=== PATIENT | female | born 1965 | race Caucasian/White ===

== ENCOUNTER 2020-04-18 12:37 | Outpatient (REF) | payer OTHER, SELFPAY ==
[2020-04-18 13:50] LABS: MANUAL DIFF FLAG NO
[2020-04-18 13:58] LABS: Basophils Absolute Auto 0.1 X10*3/uL (0.0-0.2); Eosinophils Absolute Auto 0.1 X10*3/uL (0.0-0.4); Hematocrit 44.1 % (37-47); Hemoglobin 13.9 g/dl (12.0-16.0); Imm Gran Abs Auto 0.02 X10*3/uL (0.00-0.03); Imm Gran Pct Auto 0.3 % (0.0-0.4); Lymphocytes Absolute Auto 2.5 X10*3/uL (1.2-4.9); Mean Corpuscular HGB Conc 31.5 g/dl (31.0-35.0); Mean Corpuscular Hemoglobin 27.7 pg (27.0-33.0); Mean Corpuscular Volume 87.8 fL (80-98); Mean Platelet Volume 10.8 fL (9.4-12.3); Monocytes Absolute Auto 0.5 X10*3/uL (0.1-1.2); Monocytes Percent Auto 7.7 % (2-11); Neutrophils Absolute Auto 3.6 X10*3/uL (2.0-8.3); Platelet Count 340 X10*3/uL (160-400); Red Blood Count 5.02 X10*6/uL (4.20-5.50); Red Cell Distribution Width 13.6 % (11.0-16.0); White Blood Count 6.9 X10*3/uL (4.8-10.8)
[2020-04-18 14:39] LABS: Alanine Aminotransferase 15 U/L (0-31); Albumin Level 4.4 g/dL (3.5-5.0); Alkaline Phosphatase 80 U/L (39-117); Anion Gap 14 (12-20); Aspartate Amino Transferase 16 U/L (5-31); Bilirubin Total 0.5 mg/dL (0.0-1.0); Blood Urea Nitrogen 13 mg/dL (9-16); Calcium 8.9 mg/dL (8.4-10.2); Carbon Dioxide 26 mmol/L (22-29); Chloride 104 mmol/L (96-108); Cholesterol 228 mg/dL; Estimated Glomerular Filt Rate > 60; Glucose Fasting 92 mg/dL (60-99); HDL Cholesterol 62 mg/dL; LDL Cholesterol Calculated 145 mg/dl; Potassium 4.7 mmol/l (3.3-5.1); Sodium 139 mmol/L (135-145); Total Protein 7.5 g/dL (6.5-8.0); Triglycerides 108 mg/dL
[2020-04-18 14:49] LABS: Thyroid Stimulating Hormone 1.11 mIU/mL (0.32-4.0); Vitamin D 25-OH Total 30.3 ng/mL (>30)
== END 2020-04-18 12:38 | disposition home or self-care (01) ==
LOC: HO.HMGCLDS 12:37
PROVIDERS: PCP Internal Medicine; Visit Provider Internal Medicine
DX: Z00.00 Encounter for general adult medical examination without abnormal findings (principal); F41.9 Anxiety disorder, unspecified; I10 Essential (primary) hypertension
CPT/HCPCS: 36415; 80053; 80061; 82306; 84443; 85025; 88142

== ENCOUNTER 2020-04-26 10:02 | Outpatient (REF) | payer OTHER, SELFPAY ==
--- NOTE | 2020-04-26 | US_ITS ---
EXAMINATION: ULTRASOUND PELVIS COMPLETE CLINICAL INFORMATION: Asymptomatic menopausal state. COMPARISON: None TECHNIQUE: Transabdominal and transvaginal ultrasound imaging of pelvis is performed. FINDINGS: The uterus is anteverted and anteflexed measuring 7.1 cm in length, 3.2 cm in AP and 5.0 cm in transverse dimension. There is a small myometrial cyst measuring 0.3 x 0.3 x 0.3 cm. The endometrial stripe measures 0.2 cm. The uterus is homogeneous in echotexture. Right ovary measures 1.4 x 0.8 x 1.3 cm and volume 0.71 mL. It appears unremarkable. Left ovary measures 2.8 x 1.1 x 1.4 cm and volume 2.2 mL. It appears unremarkable. There is no free fluid in the cul-de-sac. US/US transvaginal IMPRESSION: Small myometrial cyst. Otherwise anteverted uterus is unremarkable. Both ovaries are unremarkable. There is no free fluid in the cul-de-sac.
--- NOTE | 2020-04-26 10:04 | US_ITS ---
EXAMINATION: ULTRASOUND PELVIS COMPLETE CLINICAL INFORMATION: Asymptomatic menopausal state. COMPARISON: None TECHNIQUE: Transabdominal and transvaginal ultrasound imaging of pelvis is performed. FINDINGS: The uterus is anteverted and anteflexed measuring 7.1 cm in length, 3.2 cm in AP and 5.0 cm in transverse dimension. There is a small myometrial cyst measuring 0.3 x 0.3 x 0.3 cm. The endometrial stripe measures 0.2 cm. The uterus is homogeneous in echotexture. Right ovary measures 1.4 x 0.8 x 1.3 cm and volume 0.71 mL. It appears unremarkable. Left ovary measures 2.8 x 1.1 x 1.4 cm and volume 2.2 mL. It appears unremarkable. There is no free fluid in the cul-de-sac. US/US pelvic complete IMPRESSION: Small myometrial cyst. Otherwise anteverted uterus is unremarkable. Both ovaries are unremarkable. There is no free fluid in the cul-de-sac.
== END 2020-04-26 10:03 | disposition home or self-care (01) ==
LOC: HO.HMGCX 10:02
PROVIDERS: PCP Internal Medicine; Visit Provider Internal Medicine
DX: N95.0 Postmenopausal bleeding (principal); Z78.0 Asymptomatic menopausal state
CPT/HCPCS: 76830; 76856

== ENCOUNTER 2022-12-09 11:21 | Outpatient (REF) | payer OTHER, SELFPAY ==
[2022-12-12 22:10] LABS: HPV mRNA E6/E7 Not Detected (Not Detected)
== END 2022-12-09 11:22 | disposition home or self-care (01) ==
LOC: HO.LNP 11:21
PROVIDERS: Visit Provider Internal Medicine
DX: Z12.4 Encounter for screening for malignant neoplasm of cervix (principal); Z11.51 Encounter for screening for human papillomavirus (HPV)
CPT/HCPCS: 87624; 88142

== ENCOUNTER 2023-11-21 08:34 | Outpatient (AMB) | payer OTHER, SELFPAY ==
[2023-11-21 08:39] VITALS: BP 116/76; PULSE 87; O2SAT 97; BMI 36.5
--- NOTE | 2023-11-21 08:39 | MHC.PC.OV ---
Vital Signs 11/21/23 08:39 Height 5 ft 6 in Weight 226 lb BMI 36.5 BP 116/76 Blood Pressure Location Rt brachial Position Sitting Pulse 87 Pulse Source Pulse Oximeter Pulse Oximetry (%) 97 Oxygen Delivery Method Room Air Intake Visit Reasons: pe Intake Note: Pt is here today for PE. Allergies No Known Allergies Allergy (Verified 11/21/23 08:41) Medication List - Last Reconciled 11/21/23 by Lela Riley MD fluoxetine 10 mg PO DAILY lisinopril 2.5 mg PO DAILY Tobacco use date assessed: 11/21/23 Dental Screening Dental Screen Date: 11/21/23 Did you have a dental visit in the last 12 months?: Yes Did you have a dental problem in the last 6 months where you did not have access to dental care?: No Was dental information given to patient?: Patient has dentist HPI pe HPI Details Pt presents for PE. Patient complains of persistent pelvic discomfort and increase vaginal mucus but denies bleeding. She has a history of ovarian cyst, which resolved. Patient complains of unrestful sleep and feeling tired during the day. Her noticed that she had episodes of apnea. [facility] Medical History (Updated 11/21/23 @ 09:21 by Lela Riley MD) Postmenopausal Annual physical exam Anxiety History of mammogram Migraine headache HTN (hypertension) Surgical History (Updated 11/21/23 @ 09:18 by Lela Riley MD) H/O colonoscopy No pertinent past surgical history Family History Father HTN (hypertension) Mother No problems noted. Sister No problems noted. Son No problems noted. Social History Housing: House Patient Tobacco Use Status: Never used Tobacco e-Cigarette/Vaping Use: Never Used service: No Current occupational status: employed Cognitive needs: No Hearing needs: No Vision needs: Yes Questionnaire PHQ-9 Over the last 2 weeks, how often have you been bothered by any of the following problems? 1. Little interest or pleasure in doing things: not at all 2. Feeling down, depressed, or hopeless: not at all 3. Trouble falling or staying asleep, or sleeping too much: not at all 4. Feeling tired or having little energy: several days 5. Poor appetite or overeating: not at all 6. Feeling bad about yourself - or that you are a failure or have let yourself or your family down: not at all 7. Trouble concentrating on things, such as reading the newspaper or watching television: not at all 8. Moving or speaking so slowly that other people could have noticed. Or the opposite - being so fidgety or restless that you have been moving around a lot more than usual: not at all 9. Thoughts that you would be better off or of hurting yourself in some way: not at all Total score: 1 Depression Screening Interpretation: Negative Depression Screening Done: Yes Source: Developed by Drs. Terrell Morales, Jayshree Sutton, Tyler Trujillo and colleagues, with an educational brian from [employer]. Thrive Questionnaire Date Thrive assessed: 11/21/23 I am a: Patient What is your living situation today?: I have a steady place to live Within the past 12 months, did the food you bought not last and you didn't have the money to get more?: Never true Within the past 12 months, did you worry whether your food would run out before you got money to buy more?: Never true Do you have trouble paying for medicines?: No Do you have trouble getting transportation to medical appointments?: No Do you have trouble paying your heating and electricity bill?: No Do you have trouble taking care of your child, family member or friend?: No Do you have trouble with day-to-day activities such as bathing, preparing meals, shopping, managing finances, etc.?: No Are you currently unemployed and looking for a job?: No Are you interested in more education?: No Please select the resources that you would like help with: None THRIVE Score: 0 AUDIT C Alcohol Use Questionnaire (AUDIT-C) 1. How often do you have a drink containing alcohol?: Monthly or less 2. How many drinks containing alcohol do you have on a typical day when you are drinking?: 1 or 2 3. How often do you have six or more drinks on one occasion?: Never Total Score: 1 JERRY-7 AMB Questionnaire JERRY-7 Date JERRY - 7 assessed: 11/21/23 Feeling nervous, anxious, or on edge: 0 = Not at all Not being able to stop or control worryin = Not at all Worrying too much about different things: 0 = Not at all Trouble relaxin = Not at all Being so restless that it is hard to sit still: 0 = Not at all Becoming easily annoyed or irritable: 0 = Not at all Feeling afraid as if something awful might happen: 0 = Not at all Total JERRY-7 score (0-4 normal; 5-9 mild; 10-14 moderate; 15-21 severe): 0 Source: Developed by Drs. Terrell Morales, Jayshree Sutton, Tyler Trujillo and colleagues, with an educational brian from [employer]. Review of Systems Const All systems reviewed & are unremarkable except as noted in HPI and below Eyes Reports no additional complaints ENT Reports no additional complaints Card Reports no additional complaints Resp Reports no additional complaints GI Reports no additional complaints Reports no additional complaints Physical exam (Primary Care) Vital Signs: Last Vital Signs Pulse 87 11/21/23 08:39 BP 116/76 11/21/23 08:39 Pulse Ox 97 11/21/23 08:39 Oxygen Delivery Method Room Air 11/21/23 08:39 BMI result Body Mass Index 36.5 Tobacco/Smoking Status: Tobacco use Status Tobacco use date assessed 11/21/23 11/21/23 08:44 Patient Tobacco Use Status Never used Tobacco 11/21/23 08:44 e-Cigarette/Vaping Use Never Used 11/21/23 08:44 PHQ-9: PHQ-9 Score PHQ-9: Total score 1 11/21/23 08:44 Depression Screening Interpretation: Negative Thrive Assessment: Date of Thrive Assessment Date Thrive assessed 11/21/23 11/21/23 08:44 Const General: no acute distress HENMT Head: Yes normal to inspection Ears: hearing grossly normal bilaterally General nose exam: Normal external nose present Face and sinus: Yes normal facial exam Throat: Yes posterior oropharynx normal Eyes General: appearance normal, both eyes and all related structures Neck Neck: Yes supple Resp Effort & Inspection: normal respiratory effort Auscultation: clear to auscultation bilaterally Cardio Rhythm: regular rhythm Heart sounds: S1 normal heart sound present and S2 normal heart sound present GI Inspection: Yes normal to inspection Palpation (GI): Soft to palpation Percussion: Yes normal to percussion Auscultation: normal bowel sounds Speculum Exam - Vagina: normal appearance of the vagina Speculum Exam - Cervix: normal appearance of the cervix Bimanual Exam- Adnexa, other: tender on the right Assessment and Plan Assessment & Plan (1) Ovarian cyst: Code(s): N83.209 - Unspecified ovarian cyst, unspecified side Plan: Obtain pelvic ultrasound to evaluate (2) Hyperlipidemia: Code(s): E78.5 - Hyperlipidemia, unspecified Plan: Continue low-cholesterol diet check blood work today (3) HTN (hypertension): Code(s): I10 - Essential (primary) hypertension Plan: Continue Lisinopril (4) Annual physical exam: Code(s): Z00.00 - Encounter for general adult medical examination without abnormal findings Plan: Well-balanced diet regular exercise weight loss discussed with the patient. she will have a fasting blood work today. She has up-to-date with the mammogram. She will be referred to GI Dr. Lee for colonoscopy (5) Sleep apnea: Code(s): G47.30 - Sleep apnea, unspecified Plan: Obtain sleep studies to evaluate for obstructive sleep apnea Orders: Orders RT home sleep study Today Lipid Panel Today E66.3 - Overweight, E78.5 - Hyperlipidemia, unspecified, I10 - Essential (primary) hypertension, Z00.00 - Encounter for general adult medical examination without abnormal findings US pelvic and transvaginal Today N83.209 - Unspecified ovarian cyst, unspecified side Comprehensive [place]. Panel Fast Today E66.3 - Overweight, E78.5 - Hyperlipidemia, unspecified, I10 - Essential (primary) hypertension, Z00.00 - Encounter for general adult medical examination without abnormal findings Complete Blood Count Auto Diff Today E66.3 - Overweight, E78.5 - Hyperlipidemia, unspecified, I10 - Essential (primary) hypertension, Z00.00 - Encounter for general adult medical examination without abnormal findings TSH reflex Free T4 Today E66.3 - Overweight, E78.5 - Hyperlipidemia, unspecified, I10 - Essential (primary) hypertension, Z00.00 - Encounter for general adult medical examination without abnormal findings Vitamin D 25-OH Total Today E66.3 - Overweight, E78.5 - Hyperlipidemia, unspecified, I10 - Essential (primary) hypertension, Z00.00 - Encounter for general adult medical examination without abnormal findings Pap Smear Today Z00.00 - Encounter for general adult medical examination without abnormal findings Referrals Gastroenterology Referral Z00.00 - Encounter for general adult medical examination without abnormal findings Coding Level of Care Code Est Pt Prev Care 40-64y(41375) Diagnoses Ovarian cyst N83.209 Hyperlipidemia E78.5 HTN (hypertension) I10 Annual physical exam Z00.00 Sleep apnea G47.30
== END 2023-11-21 09:24 | disposition home or self-care (01) ==
PROVIDERS: PCP Internal Medicine; Visit Provider Internal Medicine
DX: N83.209 Unspecified ovarian cyst, unspecified side (principal); E78.5 Hyperlipidemia, unspecified; I10 Essential (primary) hypertension; Z00.00 Encounter for general adult medical examination without abnormal findings; G47.30 Sleep apnea, unspecified
CPT/HCPCS: 99396

== ENCOUNTER 2023-11-21 09:18 | Outpatient (REF) | payer OTHER, SELFPAY ==
[2023-11-21 10:19] LABS: MANUAL DIFF FLAG NO
[2023-11-21 10:34] LABS: Basophils Absolute Auto 0.1 X10*3/uL (0.0-0.2); Basophils Percent Auto 0.7 % (0-2); Eosinophils Absolute Auto 0.1 X10*3/uL (0.0-0.4); Eosinophils Percent Auto 1.5 % (0-4); Hematocrit 42.5 % (37.0-47.0); Hemoglobin 13.5 g/dl (12.0-16.0); Imm Gran Abs Auto 0.02 X10*3/uL (0.00-0.03); Imm Gran Pct Auto 0.2 % (0.0-0.4); Lymphocytes Absolute Auto 2.2 X10*3/uL (1.2-4.9); Lymphocytes Percent Auto 27.6 % (20-40); Mean Corpuscular HGB Conc 31.8 g/dl (31.0-35.0); Mean Corpuscular Hemoglobin 27.3 pg (27.0-33.0); Mean Platelet Volume 10.5 fL (9.4-12.3); Monocytes Absolute Auto 0.7 X10*3/uL (0.1-1.2); Monocytes Percent Auto 8.3 % (2-11); Neutrophils Absolute Auto 4.9 x10*3/uL (2.0-8.3); Neutrophils Percent Auto 61.7 % (45-73); Platelet Count 328 X10*3/uL (160-400); Red Blood Count 4.94 X10*6/uL (4.20-5.50); Red Cell Distribution Width 13.9 % (11.0-16.0)
[2023-11-21 10:47] LABS: Alanine Aminotransferase 24 U/L (0-31); Albumin Level 4.1 g/dL (3.5-5.0); Alkaline Phosphatase 73 U/L (39-117); Anion Gap 10 (12-20); Aspartate Amino Transferase 22 U/L (5-31); Bilirubin Total 0.4 mg/dL (0.0-1.0); Blood Urea Nitrogen 11 mg/dL (9-16); Calcium 9.5 mg/dL (8.4-10.2); Carbon Dioxide 27 mmol/L (22-29); Chloride 105 mmol/L (96-108); Cholesterol 219 mg/dL (<200); Estimated Glomerular Filt Rate > 60; Glucose Fasting 102 mg/dL (60-99); HDL Cholesterol 54 mg/dL (>40); LDL Cholesterol Calculated 139 mg/dL (<100); Potassium 4.4 mmol/L (3.3-5.1); Sodium 138 mmol/L (135-145); Total Protein 7.5 g/dL (6.5-8.0); Triglycerides 134 mg/dL (<150)
[2023-11-21 11:08] LABS: TSH reflex Free T4 1.26 uIU/mL (0.32-4.0); Vitamin D 25-OH Total 22.4 ng/mL (>30)
== END 2023-11-21 09:19 | disposition home or self-care (01) ==
LOC: HO.HMGCLDS 09:18
PROVIDERS: PCP Internal Medicine; Visit Provider Internal Medicine
DX: Z00.00 Encounter for general adult medical examination without abnormal findings (principal); I10 Essential (primary) hypertension; E78.5 Hyperlipidemia, unspecified; E66.3 Overweight
CPT/HCPCS: 36415; 80053; 80061; 82306; 84443; 85025

== ENCOUNTER 2023-11-21 11:32 | Outpatient (REF) | payer OTHER, SELFPAY ==
[2023-11-27 07:59] LABS: HPV mRNA E6/E7 rflx Not Detected (Not Detected)
== END 2023-11-21 11:33 | disposition home or self-care (01) ==
LOC: HO.LNP 11:32
PROVIDERS: Visit Provider Internal Medicine
DX: Z00.00 Encounter for general adult medical examination without abnormal findings (principal)
CPT/HCPCS: 87624; 88142

== ENCOUNTER 2023-12-08 13:52 | Outpatient (REF) | payer OTHER, SELFPAY ==
--- NOTE | ~2023-12-08 | US_ITS ---
EXAMINATION: US PELVIS CLINICAL INFORMATION: Ovarian cyst. COMPARISON: None available. TECHNIQUE: Ultrasound of the pelvis is performed using both transabdominal and transvaginal transducers along with color Doppler. Transvaginal imaging is performed due to inadequate visualization transabdominally. FINDINGS: Uterus: The uterus is anteverted and measures 7.5 x 3.7 x 4.2 cm. Nabothian cyst in the posterior cervix. The double wall endometrial thickness is 0.3 cm. The uterus is smooth in contour and has normal myometrial echogenicity. Adnexa: The right ovary measures 1.9 x 0.8 x 1.2 cm. The left ovary measures 2.8 x 2.7 x 2.4 cm. A 2.4 cm simple appearing avascular cyst is seen in the left ovary. No free fluid. US/US pelvic and transvaginal IMPRESSION: 2.4 cm benign simple cyst in left ovary. No follow-up imaging is recommended.
== END 2023-12-08 13:53 | disposition home or self-care (01) ==
LOC: HO.HMGCX 13:52
PROVIDERS: PCP Internal Medicine; Visit Provider Internal Medicine
DX: N83.209 Unspecified ovarian cyst, unspecified side (principal)
CPT/HCPCS: 76830; 76856

== ENCOUNTER → 2024-02-11 14:45 | Outpatient (REF) | payer OTHER, SELFPAY | LOC: HO.SL 14:45 | PROVIDERS: PCP Internal Medicine; Visit Provider Internal Medicine | DX: G47.33 Obstructive sleep apnea (adult) (pediatric) (principal) | CPT/HCPCS: 95806 ==

== ENCOUNTER → 2024-02-15 15:14 | Outpatient (BNV) | payer OTHER, SELFPAY | PROVIDERS: PCP Internal Medicine; Visit Provider Internal Medicine | DX: G47.33 Obstructive sleep apnea (adult) (pediatric) (principal) | CPT/HCPCS: 95806 ==

== ENCOUNTER 2024-04-19 10:59 | Outpatient (AMB) | payer OTHER, SELFPAY ==
[2024-04-19 11:00] VITALS: BP 112/70; PULSE 74; O2SAT 96; BMI 36.6
--- NOTE | 2024-04-19 11:00 | MHC.PC.OV ---
Vital Signs 04/19/24 11:00 Height 5 ft 6 in Weight 227 lb BMI 36.6 BP 112/70 Blood Pressure Location Lt brachial Position Sitting Pulse 74 Pulse Source Pulse Oximeter Pulse Oximetry (%) 96 Oxygen Delivery Method Room Air Intake Visit Reasons: Followup CPAP Intake Note: Pt is here today for a follow up visit. Allergies No Known Allergies Allergy (Verified 04/19/24 11:02) Medication List - Last Reconciled 04/19/24 by Lela Riley MD CPAP (CPAP Machine/Device) auto pap 6-20 cm with all needed supplies fluoxetine 10 mg PO DAILY lisinopril 2.5 mg PO DAILY Tobacco use date assessed: 04/19/24 Dental Screening Dental Screen Date: 11/21/23 HPI Followup CPAP HPI Details Patient presents for the follow-up of obstructive sleep apnea, started CPAP and has been tolerating it well, sleeping 7-10 hour per night and feeling well rested in the morning. Hypertension is controlled on lisinopril [facility] Medical History (Updated 04/19/24 @ 11:20 by Lela Riley MD) Postmenopausal Annual physical exam Anxiety History of mammogram Migraine headache HTN (hypertension) Surgical History H/O colonoscopy No pertinent past surgical history Family History Father HTN (hypertension) Mother No problems noted. Sister No problems noted. Son No problems noted. Social History Housing: House Patient Tobacco Use Status: Never used Tobacco e-Cigarette/Vaping Use: Never Used service: No Current occupational status: employed Cognitive needs: No Hearing needs: No Vision needs: Yes Questionnaire PHQ-9 Over the last 2 weeks, how often have you been bothered by any of the following problems? 1. Little interest or pleasure in doing things: not at all 2. Feeling down, depressed, or hopeless: not at all 3. Trouble falling or staying asleep, or sleeping too much: not at all 4. Feeling tired or having little energy: not at all 5. Poor appetite or overeating: not at all 6. Feeling bad about yourself - or that you are a failure or have let yourself or your family down: not at all 7. Trouble concentrating on things, such as reading the newspaper or watching television: not at all 8. Moving or speaking so slowly that other people could have noticed. Or the opposite - being so fidgety or restless that you have been moving around a lot more than usual: not at all 9. Thoughts that you would be better off or of hurting yourself in some way: not at all Total score: 0 Depression Screening Interpretation: Negative Depression Screening Done: Yes 88241 - PHQ-9 Billing: Yes Source: Developed by Drs. Terrell Morales, Jayshree Sutton, Tyler Trujillo and colleagues, with an educational brian from [employer]. Thrive Questionnaire Date Thrive assessed: 04/19/24 I am a: Patient What is your living situation today?: I have a steady place to live Within the past 12 months, did the food you bought not last and you didn't have the money to get more?: Never true Within the past 12 months, did you worry whether your food would run out before you got money to buy more?: Never true Do you have trouble paying for medicines?: No Do you have trouble getting transportation to medical appointments?: No Do you have trouble paying your heating and electricity bill?: No Do you have trouble taking care of your child, family member or friend?: No Do you have trouble with day-to-day activities such as bathing, preparing meals, shopping, managing finances, etc.?: No Are you currently unemployed and looking for a job?: No Are you interested in more education?: I choose not to answer this question Please select the resources that you would like help with: None Currently or been in a relationship where the following occur: I choose not to answer THRIVE Score: 0 AUDIT C Alcohol Use Questionnaire (AUDIT-C) 1. How often do you have a drink containing alcohol?: Monthly or less 2. How many drinks containing alcohol do you have on a typical day when you are drinking?: 1 or 2 3. How often do you have six or more drinks on one occasion?: Less than monthly Total Score: 2 JERRY-7 AMB Questionnaire JERRY-7 Date JERRY - 7 assessed: 04/19/24 Feeling nervous, anxious, or on edge: 0 = Not at all Not being able to stop or control worryin = Not at all Worrying too much about different things: 0 = Not at all Trouble relaxin = Not at all Being so restless that it is hard to sit still: 0 = Not at all Becoming easily annoyed or irritable: 0 = Not at all Feeling afraid as if something awful might happen: 0 = Not at all Total JERRY-7 score (0-4 normal; 5-9 mild; 10-14 moderate; 15-21 severe): 0 Source: Developed by Drs. Terrell Morales, Jayshree Sutton, Tyler Trujillo and colleagues, with an educational brian from [employer]. JERRY-7 Assessment Billing JERRY-7 Assessment Tool: JERRY-7 Assessment 37489 Review of Systems Const All systems reviewed & are unremarkable except as noted in HPI and below ENT Reports no additional complaints Card Reports no additional complaints Resp Reports no additional complaints GI Reports no additional complaints Reports no additional complaints Physical exam (Primary Care) Vital Signs: Last Vital Signs Pulse 74 04/19/24 11:00 BP 112/70 04/19/24 11:00 Pulse Ox 96 04/19/24 11:00 Oxygen Delivery Method Room Air 04/19/24 11:00 BMI result Body Mass Index 36.6 Tobacco/Smoking Status: Tobacco use Status Tobacco use date assessed 04/19/24 04/19/24 11:04 Patient Tobacco Use Status Never used Tobacco 04/19/24 11:04 e-Cigarette/Vaping Use Never Used 04/19/24 11:04 PHQ-9: PHQ-9 Score PHQ-9: Total score 0 04/19/24 11:04 Depression Screening Interpretation: Negative Thrive Assessment: Date of Thrive Assessment Date Thrive assessed 04/19/24 04/19/24 11:04 Currently or been in a relationship where the following occur: I choose not to answer Const General: no acute distress HENMT Mouth: Normal oral and palatal mucosa present Eyes General: appearance normal, both eyes and all related structures Neck Neck: Yes supple Resp Effort & Inspection: normal respiratory effort Auscultation: clear to auscultation bilaterally Cardio Rhythm: regular rhythm Heart sounds: S1 normal heart sound present and S2 normal heart sound present GI Inspection: Yes normal to inspection Palpation (GI): Soft to palpation Percussion: Yes normal to percussion Auscultation: normal bowel sounds Coding Level of Care Code Est Pt Level 4 (77414) Diagnoses Nocturnal hypoxemia G47.34 Hyperlipidemia E78.5 HTN (hypertension) I10 Additional Codes JERRY-7 Assessment Billing - JERRY-7 Assessment Tool: JERRY-7 Assessment [id number] ([id number]) Assessment & Plan Assessment & Plan (1) Nocturnal hypoxemia: Code(s): G47.34 - Idiopathic sleep related nonobstructive alveolar hypoventilation Category: Medical Plan: Check overnight oximetry for nocturnal hypoxemia (2) Hyperlipidemia: Code(s): E78.5 - Hyperlipidemia, unspecified Category: Medical Plan: Continue low-cholesterol diet (3) HTN (hypertension): Code(s): I10 - Essential (primary) hypertension Category: Medical Plan: Continue lisinopril, return for physical in October Orders: Orders Overnight Pulse Oximetry Today G47.34 - Idiopathic sleep related nonobstructive alveolar hypoventilation Comprehensive [place]. Panel Fast 7 Months E78.5 - Hyperlipidemia, unspecified, I10 - Essential (primary) hypertension, Z00.00 - Encounter for general adult medical examination without abnormal findings Lipid Panel 7 Months E78.5 - Hyperlipidemia, unspecified, I10 - Essential (primary) hypertension, Z00.00 - Encounter for general adult medical examination without abnormal findings TSH reflex Free T4 7 Months E78.5 - Hyperlipidemia, unspecified, I10 - Essential (primary) hypertension, Z00.00 - Encounter for general adult medical examination without abnormal findings Complete Blood Count Auto Diff 7 Months E78.5 - Hyperlipidemia, unspecified, I10 - Essential (primary) hypertension, Z00.00 - Encounter for general adult medical examination without abnormal findings Vitamin D 25-OH Total 7 Months E78.5 - Hyperlipidemia, unspecified, I10 - Essential (primary) hypertension, Z00.00 - Encounter for general adult medical examination without abnormal findings Medications: Refilled fluoxetine 10 mg PO DAILY 90 tabs 3RF lisinopril 2.5 mg PO DAILY 90 tabs 3RF
== END 2024-04-19 11:55 | disposition home or self-care (01) ==
PROVIDERS: PCP Internal Medicine; Visit Provider Internal Medicine
DX: G47.34 Idiopathic sleep related nonobstructive alveolar hypoventilation (principal); E78.5 Hyperlipidemia, unspecified; I10 Essential (primary) hypertension

== ENCOUNTER → 2024-04-19 10:59 | Outpatient (BNVA) | payer OTHER, SELFPAY | PROVIDERS: PCP Internal Medicine; Visit Provider Internal Medicine | DX: G47.34 Idiopathic sleep related nonobstructive alveolar hypoventilation (principal); E78.5 Hyperlipidemia, unspecified; I10 Essential (primary) hypertension; Z79.899 Other long term (current) drug therapy | CPT/HCPCS: 96127 ==

== ENCOUNTER 2024-12-28 08:52 | Outpatient (REF) | payer OTHER, SELFPAY ==
[2024-12-28 11:12] LABS: MANUAL DIFF FLAG NO
[2024-12-28 11:21] LABS: Hematocrit 42.8 % (37.0-47.0); Hemoglobin 13.4 g/dl (12.0-16.0); Imm Gran Abs Auto 0.03 X10*3/uL (0.00-0.03); Imm Gran Pct Auto 0.4 % (0.0-0.4); Lymphocytes Absolute Auto 2.6 X10*3/uL (1.2-4.9); Mean Corpuscular HGB Conc 31.3 g/dl (31.0-35.0); Mean Corpuscular Hemoglobin 27.1 pg (27.0-33.0); Mean Corpuscular Volume 86.5 fL (80.0-98.0); NRBC Abs Auto 0.000 X10*3/uL (0.0-0.012); NRBC Pct Auto 0.0 /100WBC (0.0-0.2); Platelet Count 314 X10*3/uL (160-400); Red Blood Count 4.95 X10*6/uL (4.20-5.50); White Blood Count 7.1 X10*3/uL (4.8-10.8)
[2024-12-28 11:50] LABS: Alanine Aminotransferase 30 U/L (0-31); Albumin Level 4.3 g/dL (3.5-5.0); Alkaline Phosphatase 82 U/L (39-117); Anion Gap 10 (12-20); Aspartate Amino Transferase 24 U/L (5-31); Blood Urea Nitrogen 15 mg/dL (9-16); Calcium 8.9 mg/dL (8.4-10.2); Carbon Dioxide 26 mmol/L (22-29); Chloride 107 mmol/L (96-108); Cholesterol 233 mg/dL (<200); Estimated Glomerular Filt Rate > 60; HDL Cholesterol 63 mg/dL (>40); Potassium 4.4 mmol/L (3.3-5.1); Sodium 139 mmol/L (135-145); Total Protein 7.5 g/dL (6.5-8.0); Triglycerides 82 mg/dL (<150)
[2024-12-28 11:53] LABS: Appearance Urine Clear; Glucose Urine UA Negative (Negative); PH 5.5 (5.0-9.0); Specific Gravity - Urine 1.025 (1.005-1.025); UMIC TRIGGER UA YES
== END 2024-12-28 08:53 | disposition home or self-care (01) ==
LOC: HO.HMGCLDS 08:52
PROVIDERS: PCP Internal Medicine; Visit Provider Internal Medicine
DX: Z00.01 Encounter for general adult medical examination with abnormal findings (principal); G47.30 Sleep apnea, unspecified; I10 Essential (primary) hypertension; E78.5 Hyperlipidemia, unspecified
CPT/HCPCS: 36415; 80053; 80061; 81001; 82306; 84443; 85025; 96127

== ENCOUNTER 2024-12-28 08:52 | Outpatient (AMB) | payer OTHER, SELFPAY ==
--- NOTE | 2024-12-28 08:58 | MHC.PC.OV ---
Vital Signs 12/28/24 08:59 Height 5 ft 6 in Weight 248 lb BMI 40.0 BP 110/80 Blood Pressure Location Lt brachial Position Sitting Respiration 18 Pulse 85 Pulse Source Pulse Oximeter Temp 98.2 F Temp Source Oral Pulse Oximetry (%) 97 Oxygen Delivery Method Room Air Intake Visit Reasons: PE Intake Note: Pt is here today for PE. Allergies No Known Allergies Allergy (Verified 12/28/24 09:02) Medication List - Last Reconciled 12/28/24 by Lela Riley MD CPAP (CPAP Machine/Device) auto pap 6-20 cm with all needed supplies fluoxetine 10 mg PO DAILY lisinopril 2.5 mg PO DAILY Tobacco use date assessed: 12/28/24 Dental Screening Dental Screen Date: 12/28/24 Did you have a dental visit in the last 12 months?: Yes Did you have a dental problem in the last 6 months where you did not have access to dental care?: No Was dental information given to patient?: Patient has dentist HPI PE HPI Details Pt presents for PE. Patient reports gaining weight eating unhealthy diet and not exercising. Patient has not been feeling motivated. She denies depression PFSH Medical History (Updated 12/28/24 @ 12:36 by Lela Riley MD) Postmenopausal Annual physical exam Anxiety History of mammogram Migraine headache HTN (hypertension) Surgical History (Updated 12/28/24 @ 09:32 by Lela Riley MD) H/O colonoscopy No pertinent past surgical history Family History Father HTN (hypertension) Mother No problems noted. Sister No problems noted. Son No problems noted. Social History Housing: House Patient Tobacco Use Status: Never used Tobacco e-Cigarette/Vaping Use: Never Used Second Hand Smoke Exposure: No service: No Current occupational status: employed Current occupational exposures/hazards: No Cognitive needs: No Hearing needs: No Vision needs: Yes Questionnaire PHQ-9 Over the last 2 weeks, how often have you been bothered by any of the following problems? 1. Little interest or pleasure in doing things: not at all 2. Feeling down, depressed, or hopeless: not at all 3. Trouble falling or staying asleep, or sleeping too much: not at all 4. Feeling tired or having little energy: not at all 5. Poor appetite or overeating: not at all 6. Feeling bad about yourself - or that you are a failure or have let yourself or your family down: not at all 7. Trouble concentrating on things, such as reading the newspaper or watching television: not at all 8. Moving or speaking so slowly that other people could have noticed. Or the opposite - being so fidgety or restless that you have been moving around a lot more than usual: not at all 9. Thoughts that you would be better off or of hurting yourself in some way: not at all Total score: 0 Depression Screening Interpretation: Negative Depression Screening Done: Yes 35435 - PHQ-9 Billing: Yes Source: Developed by Drs. Terrell Morales, Jayshree Sutton, Tyler Trujillo and colleagues, with an educational brian from [employer]. Thrive Questionnaire Date Thrive assessed: 12/28/24 I am a: Patient What is your living situation today?: I have a steady place to live Within the past 12 months, did the food you bought not last and you didn't have the money to get more?: Never true Within the past 12 months, did you worry whether your food would run out before you got money to buy more?: Never true Do you have trouble paying for medicines?: No Do you have trouble getting transportation to medical appointments?: No Do you have trouble paying your heating and electricity bill?: No Do you have trouble taking care of your child, family member or friend?: No Do you have trouble with day-to-day activities such as bathing, preparing meals, shopping, managing finances, etc.?: No Are you currently unemployed and looking for a job?: No Are you interested in more education?: No Please select the resources that you would like help with: None Currently or been in a relationship where the following occur: No concerns reported THRIVE Score: 0 AUDIT C Alcohol Use Questionnaire (AUDIT-C) 1. How often do you have a drink containing alcohol?: Monthly or less 2. How many drinks containing alcohol do you have on a typical day when you are drinking?: 1 or 2 3. How often do you have six or more drinks on one occasion?: Never Total Score: 1 JERRY-7 AMB Questionnaire JERRY-7 Date JERRY - 7 assessed: 12/28/24 Feeling nervous, anxious, or on edge: 0 = Not at all Not being able to stop or control worryin = Not at all Worrying too much about different things: 0 = Not at all Trouble relaxin = Not at all Being so restless that it is hard to sit still: 0 = Not at all Becoming easily annoyed or irritable: 0 = Not at all Feeling afraid as if something awful might happen: 0 = Not at all Total JERRY-7 score (0-4 normal; 5-9 mild; 10-14 moderate; 15-21 severe): 0 Source: Developed by Drs. Terrell Morales, Jayshree Sutton, Tyler Trujillo and colleagues, with an educational brian from [employer]. JERRY-7 Assessment Billing JERRY-7 Assessment Tool: JERRY-7 Assessment 48680 Review of Systems Const All systems reviewed & are unremarkable except as noted in HPI and below Eyes Reports no additional complaints ENT Reports no additional complaints Card Reports no additional complaints Resp Reports no additional complaints GI Reports no additional complaints Reports no additional complaints Physical exam (Primary Care) Vital Signs: Last Vital Signs Temp 98.2 F 12/28/24 08:59 Pulse 85 12/28/24 08:59 Resp 18 12/28/24 08:59 BP 110/80 12/28/24 08:59 Pulse Ox 97 12/28/24 08:59 Oxygen Delivery Method Room Air 12/28/24 08:59 BMI result Body Mass Index 40.0 Tobacco/Smoking Status: Tobacco use Status Tobacco use date assessed 12/28/24 12/28/24 09:06 Patient Tobacco Use Status Never used Tobacco 12/28/24 09:06 e-Cigarette/Vaping Use Never Used 12/28/24 08:59 PHQ-9: PHQ-9 Score PHQ-9: Total score 0 12/28/24 09:26 Depression Screening Interpretation: Negative Thrive Assessment: Date of Thrive Assessment Date Thrive assessed 12/28/24 12/28/24 09:07 Currently or been in a relationship where the following occur: No concerns reported Const General: no acute distress HENMT Head: Yes normal to inspection Ears: TM's normal bilaterally General nose exam: Normal external nose present Face and sinus: Yes normal facial exam Throat: Yes posterior oropharynx normal Eyes General: appearance normal, both eyes and all related structures Neck Neck: Yes no lymphadenopathy and Yes supple Resp Effort & Inspection: normal respiratory effort Auscultation: clear to auscultation bilaterally Cardio Rhythm: regular rhythm Heart sounds: S1 normal heart sound present and S2 normal heart sound present GI Inspection: Yes normal to inspection Palpation (GI): Soft to palpation Percussion: Yes normal to percussion Auscultation: normal bowel sounds Coding Level of Care Code Est Pt Prev Care 40-64y(80415) Diagnoses HTN (hypertension) I10 Annual physical exam Z00.00 Hyperlipidemia E78.5 Sleep apnea G47.30 Additional Codes JERRY-7 Assessment Billing - JERRY-7 Assessment Tool: JERRY-7 Assessment 11576 ([id number]) PHQ-9 - 70782 - PHQ-9 Billing: Yes ([id number]) Assessment & Plan Assessment & Plan (1) HTN (hypertension): Code(s): I10 - Essential (primary) hypertension Category: Medical Plan: Continue Lisinopril (2) Annual physical exam: Code(s): Z00.00 - Encounter for general adult medical examination without abnormal findings Category: Medical Plan: Well-balanced diet regular exercise weight loss discussed with the patient. She is up-to-date with the mammogram pelvic exam and colonoscopy. (3) Hyperlipidemia: Code(s): E78.5 - Hyperlipidemia, unspecified Category: Medical Plan: Low-cholesterol diet increase exercise weight loss discussed with the patient (4) Sleep apnea: Comment: Controlled on CPAP Code(s): G47.30 - Sleep apnea, unspecified Category: Medical Plan: Continue Cpap Orders: Orders Lipid Panel Today E78.5 - Hyperlipidemia, unspecified, I10 - Essential (primary) hypertension, Z00.00 - Encounter for general adult medical examination without abnormal findings TSH reflex Free T4 Today E78.5 - Hyperlipidemia, unspecified, I10 - Essential (primary) hypertension, Z00.00 - Encounter for general adult medical examination without abnormal findings UA w Microscopic Today I10 - Essential (primary) hypertension Comprehensive [place]. Panel Fast Today E78.5 - Hyperlipidemia, unspecified, I10 - Essential (primary) hypertension, Z00.00 - Encounter for general adult medical examination without abnormal findings Complete Blood Count Auto Diff Today E78.5 - Hyperlipidemia, unspecified, I10 - Essential (primary) hypertension, Z00.00 - Encounter for general adult medical examination without abnormal findings Vitamin D 25-OH Total Today E78.5 - Hyperlipidemia, unspecified, I10 - Essential (primary) hypertension, Z00.00 - Encounter for general adult medical examination without abnormal findings Medications: New omeprazole 20 mg PO DAILY 90 caps 0RF CPAP (CPAP Machine/Device) travel, portable, with nasal pillows and tubing 1 ea 0RF G47.30 - Sleep apnea, unspecified Refilled fluoxetine 10 mg PO DAILY 90 tabs 3RF
[2024-12-28 08:59] VITALS: BP 110/80; PULSE 85; RESP 18; TEMP 36.8; O2SAT 97; BMI 40.0
--- OUTSIDE RECORDS SUMMARY | 2024-12-28 09:10 | XMS_ITS | Clinical Summary ---
Author Organization [facility] Address [address] [place] [address] Care Team Providers Care Rehab Director Name Role Phone Lela Riley MD Primary Care Provider [phone] Encounters Date Type Department Care Team Description 10/21/2024 9:00 AM EDT - 10/21/2024 11:59 PM EDT [facility] [address] [id number] Encounter for screening mammogram for breast cancer Discharge Disposition: Home or Self Care from Last 3 Months Surgical History Surgery Date Site/Laterality Comments STEREOTACTIC CORE BIOPSY Bilateral Medical History Medical History Date Comments BRCA1 gene mutation negative BRCA2 gene mutation negative Family History Medical History Relation Name Comments Breast cancer Maternal Grandmother Breast cancer Mother Relation Name Status Comments Maternal Grandmother Mother Social History Tobacco Use Types Packs/Day Years Used Date Smoking Tobacco: Never Assessed Comments No Sex and Gender Information Value Date Recorded Sex Assigned at Female 09/07/2024 10:52 AM EDT Legal Sex Female 3:27 PM EDT Gender Identity Female 09/07/2024 10:52 AM EDT Sexual Orientation Choose not to disclose 2024 10:52 AM EDT Obstetrics History Para Term AB IAB SAB Ectopic Multiple Livin g Live Births 1 Last Filed Vital Signs Vital Sign Reading Time Taken Comments Blood Pressure - - Pulse - - Temperature - - Respiratory Rate - - Oxygen Saturation - - Inhaled Oxygen Concentration - - Weight 107 kg (235 lb) 10/21/2024 9:13 AM EDT Height 167.6 cm (5' 6 ) 10/21/2024 9:13 AM EDT Body Mass Index 37.93 10/21/2024 9:13 AM EDT Plan of Treatment Health Maintenance Due Date Last Done Comments Hepatitis B Vaccines (1 of 3 - 19+ 3-dose series) 1986 Cervical Cancer Screening: Pap Smear 01/03/1988 Pneumococcal Vaccine: 50+ Years (1 of 1 - PCV) 2017 Zoster Vaccines (1 of 2) 2017 Depression Screening 10/02/2020 HIV Screening 10/02/2020 Hepatitis C Screening 10/02/2020 Social Influencers of Health Screening 10/02/2020 COVID-19 Vaccine ( season) 2024 05/21/2021, 10/31/2020, 10/10/2020 Influenza Vaccine (#1) 2025 , 04/30/2022, 04/10/2021, Additional history exists DTaP,Tdap,and Td Vaccines (2 - Td or Tdap) 02/23/2026 02/24/2016 Breast Cancer Screening 10/21/2026 10/22/19, 10/21/2023, 10/18/2022, Additional history exists Colorectal Cancer Screening: Colonoscopy 04/22/2034 04/28/2024, 04/22/2024 HIB Vaccines Aged Out No longer eligi ble based on patient's age to complete this topic HPV Vaccines Aged Out No longer eligi ble based on patient's age to complete this topic Hepatitis A Vaccines Aged Out No long er eligible based on patient's age to complete this topic IPV Vaccines Aged Out No longer eligi ble based on patient's age to complete this topic MMR Vaccines Aged Out No longer eligi ble based on patient's age to complete this topic Meningococcal ACWY Vaccine Aged Out N o longer eligible based on patient's age to complete this topic Meningococcal B Vaccine Aged Out No l onger eligible based on patient's age to complete this topic RSV Immunization Patients Under 20 months Aged Out No longer eligible based on patient's age to complete this topic Varicella Vaccines Aged Out No longer eligible based on patient's age to complete this topic Procedures Procedure Name Priority Date/Time Associated Diagnosis Comments MG MAMMO DIGITAL SCREENING W ARNAV BILAT Routine 10/21/2024 9:18 AM EDT Encounter for screening mammogram for breast cancer COLONOSCOPY Routine 04/28/2024 9:48 AM EST from Last 3 Months or Most Recently Relevant to Health Maintenance Results * MG Mammo Digital Screening w Arnav bilat (10/21/2024 9:18 AM EDT) Anatomical Region Laterality Modality Breast Bilateral Mammography 10/21/2024 1:4 2 PM EDT Impressions 10/21/2024 1:44 PM EDT No evidence of breast malignancy. BI-RADS CATEGORY: 1 - NEGATIVE RECOMMENDATION: Screening bilateral mammogram is recommended in 1 year. Mammo Location: [facility], [address] [place] [address], [id number], . -------- FINAL REPORT -------- Dictated By: Corazon Calderon Dictated Date: 10/21/2024 13:42 ET Assigned Physician: Corazon Calderon Reviewed and Electronically Signed By: Corazon Calderon Signed Date: 10/21/2024 13:44 ET Workstation ID: [id number] Transcribed By: Self Edit Transcribed Date: 10/21/2024 13:42 ET Narrative 10/21/2024 1:44 PM EDT CLINICAL: 59 years old, Female, routine annual exam. COMPARISON: 10/21/2023, 10/18/2022, 10/19/2021, 10/15/2021, 10/12/2020 and 09/03/2019 TECHNIQUE: Bilateral MLO and CC views were obtained digitally with 3-D mammogram (digital breast tomosynthesis). Computer-aided detection was utilized in evaluation of this exam (CAD). FINDINGS: There is no evidence of suspicious mass or architectural distortion. No worrisome calcifications are evident. There has been no significant change from prior exam(s). BREAST DENSITY: B - There are scattered areas of fibroglandular density. Procedure Note Corazon Calderon MD - 10/21/2024 CLINICAL: 59 years old, Female, routine annual exam. COMPARISON: 10/21/2023, 10/18/2022, 10/19/2021, 10/15/2021, 10/12/2020 and09/03/2019 TECHNIQUE: Bilateral MLO and CC views were obtained digitally with 3-Dmammogram (digital breast tomosynthesis). Computer-aided detection wasutilized in evaluation of this exam (CAD). FINDINGS: There is no evidence of suspicious mass or architectural distortion. Noworrisome calcifications are evident. There has been no significantchange from prior exam(s). BREAST DENSITY: B - There are scattered areas of fibroglandular density. IMPRESSION: No evidence of breast malignancy. BI-RADS CATEGORY: 1 - NEGATIVE RECOMMENDATION: Screening bilateral mammogram is recommended in 1 year. Mammo Location: [facility], [address] [place] [address], [id number], . -------- FINAL REPORT -------- Dictated By: Corazon Calderon Dictated Date: 10/21/2024 13:42 ET Assigned Physician: Corazon Calderon Reviewed and Electronically Signed By: Corazon Calderon Signed Date: 10/21/2024 13:44 ET Workstation ID: [id number] Transcribed By: Self Edit Transcribed Date: 10/21/2024 13:42 ET us Self Referral Sppl IMG BI PROCEDURES Final Resul t * COLONOSCOPY (04/28/2024 9:48 AM EST) Anatomical Region Laterality Modality Endoscopy us Souleymane Lee MD GI~PROCEDURE ORDERABLES Final Re sult from Last 3 Months or Most Recently Relevant to Health Maintenance Insurance [employer] Care Teams Rehab Director Relationship Specialty Start Date End Date Lela Riley MD [address] [place] [phone] PCP - General 06/04/11
--- OUTSIDE RECORDS SUMMARY | 2024-12-28 09:10 | XMS_ITS | Clinical Summary ---
Author Organization [facility] Facility Address [address] [place] [address] Care Team Providers Care Perinatal Instructor Name Role Phone Lela Riley MD Primary Care Provider [phone] Family History Medical History Relation Comments Hypertension Father Kidney disease Father grandmother Cancer Mother breast Relation Status Comments Father Mother Social History Tobacco Use Types Packs/Day Years Used Date Smoking Tobacco: Former Alcohol Use Standard Drinks/Week Comments Yes 0 (1 standard drink = 0.6 oz pure alcohol) Alcoholic Drinks/day: Occasional social drink Comments Unknown Sex and Gender Information Value Date Recorded Sex Assigned at Not on file Legal Sex Female 4:49 PM EST Gender Identity Not on file Sexual Orientation Not on file Plan of Treatment Health Maintenance Due Date Last Done Comments Breast Cancer Screening 1967 Hepatitis B Vaccine (1 of 3 - 19+ 3-dose series) 01/02 Colorectal Cancer Screening: Annual FOBT 01/03/2016 Colorectal Cancer Screening: Colonoscopy 01/03/2016 Colorectal Cancer Screening: Sigmoidoscopy 01/03/2016 Pneumococcal Vaccine: 50+ Years (1 of 1 - PCV) 017 Influenza Vaccine (#1) 2025 Care Teams Perinatal Instructor Relationship Specialty Start Date End Date Lela Riley MD [address] [place] [address] PCP - General 07/03/20
== END 2024-12-28 10:06 | disposition home or self-care (01) ==
LOC: HO.HMCC 08:53
PROVIDERS: PCP Internal Medicine; Visit Provider Internal Medicine
DX: I10 Essential (primary) hypertension (principal); Z00.00 Encounter for general adult medical examination without abnormal findings; E78.5 Hyperlipidemia, unspecified; G47.30 Sleep apnea, unspecified

== ENCOUNTER 2025-03-14 09:45 | Outpatient (AMB) | payer OTHER, SELFPAY ==
[2025-03-14 09:47] VITALS: BP 138/80; PULSE 110; RESP 20; TEMP 37.5; O2SAT 95; BMI 39.2
--- NOTE | 2025-03-14 09:47 | A.OFFPC_ITS ---
Vital Signs 03/14/25 09:47 Height 5 ft 6 in Weight 243 lb BMI 39.2 BP 138/80 Blood Pressure Location Rt brachial Position Sitting Respiration 20 Pulse 110 H Pulse Source Pulse Oximeter Temp 99.5 F Temp Source Oral Pulse Oximetry (%) 95 Oxygen Delivery Method Room Air Intake Visit Reasons: cold symptoms Intake Note: Pt is here today for a sick visit. Pt c/o cough, chest congestion and nasal congestion. Allergies No Known Allergies Allergy (Verified 03/14/25 09:52) Medication List - Last Reconciled 03/14/25 by Lela Riley MD CPAP (CPAP Machine/Device) auto pap 6-20 cm with all needed supplies CPAP (CPAP Machine/Device) travel, portable, with nasal pillows and tubing fluoxetine 10 mg PO DAILY lisinopril 2.5 mg PO DAILY omeprazole 20 mg PO DAILY Tobacco use date assessed: 03/14/25 Dental Screening Dental Screen Date: 03/14/25 Did you have a dental visit in the last 12 months?: Yes Did you have a dental problem in the last 6 months where you did not have access to dental care?: No Was dental information given to patient?: Patient has dentist HPI cold symptoms HPI Details Patient complains of 2 days of nasal congestion, watery discharge postnasal drip, dry cough body aches. She fell down in bathtub and sustained on nasal fracture 2 weeks ago and was to have a surgery this week. Patient has been taking [id number] cold medications with some relief PFSH Medical History Postmenopausal Annual physical exam Anxiety History of mammogram Migraine headache HTN (hypertension) Surgical History H/O colonoscopy No pertinent past surgical history Family History Father HTN (hypertension) Mother No problems noted. Sister No problems noted. Son No problems noted. Social History Housing: House Patient Tobacco Use Status: Never used Tobacco e-Cigarette/Vaping Use: Never Used Second Hand Smoke Exposure: No service: No Current occupational status: employed Current occupational exposures/hazards: No Cognitive needs: No Hearing needs: No Vision needs: Yes Questionnaire Thrive Questionnaire Date Thrive assessed: 11/24/24 I am a: Patient What is your living situation today?: I have a steady place to live Within the past 12 months, did the food you bought not last and you didn't have the money to get more?: Never true Within the past 12 months, did you worry whether your food would run out before you got money to buy more?: Never true Do you have trouble paying for medicines?: No Do you have trouble getting transportation to medical appointments?: No Do you have trouble paying your heating and electricity bill?: No Do you have trouble taking care of your child, family member or friend?: No Do you have trouble with day-to-day activities such as bathing, preparing meals, shopping, managing finances, etc.?: No Are you currently unemployed and looking for a job?: No Are you interested in more education?: No Please select the resources that you would like help with: None Currently or been in a relationship where the following occur: No concerns reported THRIVE Score: 0 JERRY-7 AMB Questionnaire JERRY-7 Date JERRY - 7 assessed: 12/28/24 Source: Developed by Drs. Terrell Morales, Jayshree Sutton, Tyler Trujillo and colleagues, with an educational brian from [employer]. Review of Systems Const All systems reviewed & are unremarkable except as noted in HPI and below Eyes Reports no additional complaints ENT Reports no additional complaints Card Reports no additional complaints Resp Reports no additional complaints GI Reports no additional complaints Reports no additional complaints Physical exam (Primary Care) Vital Signs: Last Vital Signs Temp 99.5 F 03/14/25 09:47 Pulse 110 H 03/14/25 09:47 Resp 20 03/14/25 09:47 BP 138/80 03/14/25 09:47 Pulse Ox 95 03/14/25 09:47 Oxygen Delivery Method Room Air 03/14/25 09:47 BMI result Body Mass Index 39.2 Tobacco/Smoking Status: Tobacco use Status Tobacco use date assessed 03/14/25 03/14/25 09:57 Patient Tobacco Use Status Never used Tobacco 03/14/25 09:57 e-Cigarette/Vaping Use Never Used 03/14/25 09:57 Thrive Assessment: Date of Thrive Assessment Date Thrive assessed 11/24/24 03/14/25 09:57 Currently or been in a relationship where the following occur: No concerns reported Const General: no acute distress HENMT Ears: TM's normal bilaterally General nose exam: Abnormal mucous membranes and turbinates present erythematous and no epistaxis Throat: Yes postnasal drainage Neck Neck: Yes supple Resp Effort & Inspection: normal respiratory effort Auscultation: clear to auscultation bilaterally Cardio Rhythm: regular rhythm Heart sounds: S1 normal heart sound present and S2 normal heart sound present Coding Level of Care Code Est Pt Level 3 (54556) Diagnoses URI (upper respiratory infection) J06.9 HTN (hypertension) I10 Assessment & Plan Assessment & Plan (1) URI (upper respiratory infection): Code(s): J06.9 - Acute upper respiratory infection, unspecified Category: Medical Plan: Supportive care discussed with the patient check URI swab (2) HTN (hypertension): Code(s): I10 - Essential (primary) hypertension Category: Medical Plan: cont med Orders: Orders SARS-CoV2/FLU/RSV Today J06.9 - Acute upper respiratory infection, unspecified Medications: New 2 benzonatate 100 mg PO TID 30 caps 0RF
--- OUTSIDE RECORDS SUMMARY | 2025-03-14 11:54 | XMS_ITS | Clinical Summary ---
Author Organization [facility] Facility Address [address] [place] [id number] Care Team Providers Care Rhic Systems Safety Engineer Name Role Phone Lela Riley MD Primary Care Provider [phone] Family History Medical History Relation Comments Hypertension [...] 017 Influenza Vaccine (#1) 2025 Care Teams [employer]ic Systems Safety Engineer Relationship Specialty Start Date End Date Lela Riley MD [address] [place] [address] PCP - General 07/03/20
--- OUTSIDE RECORDS SUMMARY | 2025-03-14 11:54 | XMS_ITS | Clinical Summary ---
Author Organization [facility] Address [address] [place] [address] Care Team Providers Care English Composition Teacher Name Role Phone Lela Riley MD Primary Care Provider [phone] Allergies No known active allergies Encounters Date Type Department Care Team Description 03/04/2025 11:51 AM EDT - 03/04/2025 12:48 PM EDT Emergency [facility] Emergency [address] [place] [address] Flory Khan MD Closed fracture of nasal bone, initial encounter (Primary Dx); Contusion of face, initial encounter Discharge Disposition: Home or Self Care from [...] Sign Reading Time Taken Comments Blood Pressure 150/81 03/04/2025 11:46 AM EDT Pulse 94 03/04/2025 11:46 AM EDT Temperature 36.3 C (97.3 F) 03/04/2025 11:46 AM EDT Respiratory Rate 14 03/04/2025 11:46 AM EDT Oxygen Saturation 97% 03/04/2025 11:46 AM EDT Inhaled Oxygen Concentration - - Weight 104 kg (230 lb) 03/04/2025 11:46 AM EDT Height 170.7 cm (5' 7.2 ) 03/04/2025 11:46 AM ED T Body Mass Index 35.81 03/04/2025 11:46 AM EDT Plan of Treatment Health Maintenance Due Date Last Done Comments Hepatitis B Vaccines (1 of 3 - 19+ 3-dose series) 1986 Cervical Cancer Screening: Pap Smear 01/03/1988 Pneumococcal Vaccine: 50+ Years (1 of 1 - PCV) 2017 Zoster Vaccines (1 of 2) 2017 HIV Screening 10/02/2020 Hepatitis C Screening 10/02/2020 Social Influencers of Health Screening 10/02/2020 Depression Screening 06/23/2024 COVID-19 Vaccine ( season) 2025 05/21/2021, 10/31/2020, 10/10/2020 Influenza Vaccine (#1) 2025 , 04/30/2022, 04/10/2021, Additional history exists DTaP,Tdap,and Td Vaccines (2 - Td or Tdap) 02/23/2026 02/24/2016 Breast Cancer Screening 10/21/2026 10/22/19 25, 10/21/2023, 10/18/2022, Additional history exists Colorectal Cancer [...] Procedure Name Priority Date/Time Associated Diagnosis Comments CT MAXILLOFACIAL WO CONTRAST STAT 03/04/2025 12:[address] CERVICAL SPINE WO CONTRAST STAT 03/04/2025 12:[address] HEAD WO CONTRAST STAT 03/04/2025 1 2:17 PM EDT MG MAMMO DIGITAL SCREENING W ARNAV BILAT Routine 10/21/2024 9:18 AM EDT Encounter for screening mammogram for breast cancer COLONOSCOPY Routine 04/28/2024 9:48 AM EST from Last 3 Months or Most Recently Relevant to Health Maintenance Results * CT Cervical Spine wo Contrast (03/04/2025 12:17 PM EDT) Anatomical Region Laterality Modality Spine, C-spine Computed Tomogra phy 03/04/2025 12:3 1 PM EDT Impressions 03/04/2025 12:32 PM EDT No acute cervical spine fracture. -------- FINAL REPORT -------- Dictated By: Selam Boswell Dictated Date: 03/04/2025 12:31 ET Assigned Physician: Selam Boswell Reviewed and Electronically Signed By: Selam Boswell Signed Date: 03/04/2025 12:32 ET Workstation ID: [id number] Transcribed By: Self Edit Transcribed Date: 03/04/2025 12:31 ET Narrative 03/04/2025 12:32 PM EDT PROCEDURE: CT Cervical Spine INDICATION: Neck trauma, dangerous injury mechanism (Age 16-64y) TECHNIQUE: Noncontrast CT of the cervical spine with multiplanar reformats. The examination was performed utilizing dose reduction techniques. DLP: 2398mGy/cm COMPARISON: No priors available. FINDINGS: No fracture. Multilevel degenerative changes are seen throughout the cervical spine with endplate irregularities, disc height loss, uncovertebral spurring and facet arthropathy present. Lung apices are clear. Thyroid nodules. Procedure Note Selam Boswell MD - 03/04/2025 PROCEDURE: CT Cervical Spine INDICATION: Neck trauma, dangerous injury mechanism (Age 16-64y) TECHNIQUE: Noncontrast CT of the cervical spine with multiplanarreformats. The examination was performed utilizing dose reduction techniques. DLP:2398mGy/cm COMPARISON: No priors available. FINDINGS: No fracture. Multilevel degenerative changes are seen throughout the cervical spinewith endplate irregularities, disc height loss, uncovertebral spurring andfacet arthropathy present. Lung apices are clear. Thyroid nodules. IMPRESSION: No acute cervical spine fracture. -------- FINAL REPORT -------- Dictated By: Selam Boswell Dictated Date: 03/04/2025 12:31 ET Assigned Physician: Selam Boswell Reviewed and Electronically Signed By: Selam Boswell Signed Date: 03/04/2025 12:32 ET Workstation ID: [id number] Transcribed By: Self Edit Transcribed Date: 03/04/2025 12:31 ET Flory Khan MD IMG CT PROCEDURES Final Result * CT Maxillofacial wo Contrast (03/04/2025 12:17 PM EDT) Anatomical Region Laterality Modality Head and Neck Computed Tomogra phy 03/04/2025 12:2 9 PM EDT Impressions 03/04/2025 12:31 PM EDT Mildly displaced nasal bone fractures. -------- FINAL REPORT -------- Dictated By: Selam Boswell Dictated Date: 03/04/2025 12:29 ET Assigned Physician: Selam Boswell Reviewed and Electronically Signed By: Selam Boswell Signed Date: 03/04/2025 12:31 ET Workstation ID: [id number] Transcribed By: Self Edit Transcribed Date: 03/04/2025 12:29 ET Narrative 03/04/2025 12:[address] MAXILLOFACIAL WO CONTRAST INDICATION: Facial trauma facial/nasal rtauma this am COMPARISON: None. TECHNIQUE: Axial Computed Tomographic imaging from the face without administration of intravenous contrast. Additional coronal and sagittal multiplanar reformatted images generated and reviewed. Total DLP [address] scans at this facility use dose modulation, iterative reconstruction, and/or weight-based dosing when appropriate to reduce radiation dose to as low as reasonably achievable. FINDINGS: Please note that sensitivity of this examination is somewhat diminished by lack of intravenous contrast. BRAIN: No acute abnormality in the visualized portions the brain. ORBITS: No intraorbital pathology identified. PARANASAL SINUSES: Trace paranasal sinus disease.. AIRWAY: The nasal cavity, nasopharynx, oral cavity, tongue base, oropharynx, and visualized hypopharynx are clear without mass lesion identified. No significant airway stenosis. SOFT TISSUES: No mass lesion identified. Soft tissue swelling about the nose/maxillary region.. The parotid glands and submandibular glands are unremarkable. No pathologically enlarged, necrotic, or suppurative lymph nodes. BONES: Minimal displaced nasal bone fractures. No suspicious lytic or blastic lesions identified. No significant focal degenerative disease in the cervical spine. Procedure Note Selam Boswell MD - 03/04/2025 CT MAXILLOFACIAL WO CONTRAST INDICATION: Facial trauma facial/nasal rtauma this am COMPARISON: None. TECHNIQUE: Axial Computed Tomographic imaging from the face without administration ofintravenous contrast. Additional coronal and sagittal multiplanarreformatted images generated and reviewed. Total DLP [address] scans at this facility use dose modulation, iterativereconstruction, and/or weight-based dosing when appropriate to reduceradiation dose to as low as reasonably achievable. FINDINGS: Please note that sensitivity of this examination is somewhat diminished bylack of intravenous contrast. BRAIN: No acute abnormality in the visualized portions the brain. ORBITS: No intraorbital pathology identified. PARANASAL SINUSES: Trace paranasal sinus disease.. AIRWAY: The nasal cavity, nasopharynx, oral cavity, tongue base,oropharynx, and visualized hypopharynx are clear without mass lesionidentified. No significant airway stenosis. SOFT TISSUES: No mass lesion identified. Soft tissue swelling about thenose/maxillary region.. The parotid glands and submandibular glands areunremarkable. No pathologically enlarged, necrotic, or suppurative lymphnodes. BONES: Minimal displaced nasal bone fractures. No suspicious lytic orblastic lesions identified. No significant focal degenerative disease inthe cervical spine. IMPRESSION: Mildly displaced nasal bone fractures. -------- FINAL REPORT -------- Dictated By: Selam Boswell Dictated Date: 03/04/2025 12:29 ET Assigned Physician: Selam Boswell Reviewed and Electronically Signed By: Selam Boswell Signed Date: 03/04/2025 12:31 ET Workstation ID: [id number] Transcribed By: Self Edit Transcribed Date: 03/04/2025 12:29 ET Flory Khan MD IMG CT PROCEDURES Final Result * CT Head wo Contrast (03/04/2025 12:17 PM EDT) Anatomical Region Laterality Modality Head and Neck Computed Tomogra phy 03/04/2025 12:2 3 PM EDT Impressions 03/04/2025 12:25 PM EDT NO ACUTE INTRACRANIAL ABNORMALITY. -------- FINAL REPORT -------- Dictated By: Selam Boswell Dictated Date: 03/04/2025 12:23 ET Assigned Physician: Selam Boswell Reviewed and Electronically Signed By: Selam Boswell Signed Date: 03/04/2025 12:25 ET Workstation ID: [id number] Transcribed By: Self Edit Transcribed Date: 03/04/2025 12:23 ET Narrative 03/04/2025 12:25 PM EDT PROCEDURE: HEAD CT INDICATION: Facial trauma Head trauma, mod-severe TECHNIQUE: CT of the head without intravenous contrast. Multiplanar reformats. The examination was performed utilizing dose reduction techniques. Total DLP 2397 COMPARISON: No priors available. FINDINGS: No acute territorial infarct, mass effect, or intracranial hemorrhage. No significant white matter disease No hydrocephalus. Visualized paranasal sinuses are clear. Mastoid air cells are clear. No calvarial fracture. Procedure Note Selam Boswell MD - 03/04/2025 PROCEDURE: HEAD CT INDICATION: Facial trauma Head trauma, mod-severe TECHNIQUE: CT of the head without intravenous contrast. Multiplanarreformats. The examination was performed utilizing dose reductiontechniques. Total DLP 2397 COMPARISON: No priors available. FINDINGS: No acute territorial infarct, mass effect, or intracranial hemorrhage. No significant white matter disease No hydrocephalus. Visualized paranasal sinuses are clear. Mastoid air cells are clear. No calvarial fracture. IMPRESSION: NO ACUTE INTRACRANIAL ABNORMALITY. -------- FINAL REPORT -------- Dictated By: Selam Boswell Dictated Date: 03/04/2025 12:23 ET Assigned Physician: Selam Boswell Reviewed and Electronically Signed By: Selam Boswell Signed Date: 03/04/2025 12:25 ET Workstation ID: [id number] Transcribed By: Self Edit Transcribed Date: 03/04/2025 12:23 ET Flory Khan MD IMG CT PROCEDURES Final Result * MG Mammo Digital Screening w Arnav bilat (10/21/2024 9:18 AM EDT) Anatomical Region Laterality Modality Breast Bilateral Mammography 10/21/2024 1:42 PM EDT Impressions 10/21/2024 1:44 PM EDT No evidence of breast malignancy. BI-RADS CATEGORY: 1 - NEGATIVE RECOMMENDATION: Screening bilateral mammogram is recommended in 1 year. Mammo Location: [facility], [address] [place] [address], [facility], . -------- FINAL REPORT -------- Dictated By: Corazon Calderon Dictated Date: 10/21/2024 13:42 ET Assigned Physician: Corazon Calderon Reviewed and Electronically Signed By: Corazon Calderon Signed Date: 10/21/2024 13:44 ET Workstation ID: [id number] Transcribed By: Self Edit Transcribed Date: 10/21/2024 [...] year. Mammo Location: [facility], [address] [place] [address], [facility], . -------- FINAL REPORT -------- Dictated By: Corazon Calderon Dictated Date: 10/21/2024 13:42 ET Assigned Physician: Corazon Calderon Reviewed and Electronically Signed By: Corazon Calderon Signed Date: 10/21/2024 13:44 ET Workstation ID: [id number] Transcribed By: Self Edit Transcribed Date: 10/21/2024 13:42 ET us Self Referral Sppl IMG BI PROCEDURES Final Resul t * COLONOSCOPY (04/28/2024 9:48 AM EST) Anatomical Region Laterality Modality Endoscopy Souleymane Lee MD GI~PROCEDURE ORDERABLES Final Re sult from Last 3 Months or Most Recently Relevant to Health Maintenance Insurance [employer] Care Teams English Composition Teacher Relationship Specialty Start Date End Date Lela Riley MD [address] [place] [address] PCP - General 06/04/11
== END 2025-03-14 10:38 | disposition home or self-care (01) ==
LOC: HO.HMCC 09:46
PROVIDERS: PCP Internal Medicine; Visit Provider Internal Medicine
DX: J06.9 Acute upper respiratory infection, unspecified (principal); I10 Essential (primary) hypertension

== ENCOUNTER 2025-03-14 09:45 | Outpatient (REF) | payer OTHER, SELFPAY ==
[2025-03-14 17:09] LABS: Resp Syncy Virus RNA Qual PCR NEGATIVE (Negative); SARS COV2 PCR INHOUSE NEGATIVE (Negative)
== END 2025-03-14 09:46 | disposition home or self-care (01) ==
LOC: HO.LAB 09:45
PROVIDERS: PCP Internal Medicine; Visit Provider Internal Medicine
DX: J06.9 Acute upper respiratory infection, unspecified (principal); I10 Essential (primary) hypertension; Z79.899 Other long term (current) drug therapy
CPT/HCPCS: 87637